=== PATIENT | female | born 1940 | race Caucasian/White ===

== ENCOUNTER 2019-12-26 05:45 | Day surgery (SDC) | payer OTHER ==
[~2019-12-26 05:45] MED LIST: ATORVAST PO; FOLBIC RF TABL1 EACH; SIMVASTATIN10 MG; [UNRECOGNIZED DRUG - OTHER] PO
[2019-12-26] MEDS ORDERED: ULTRACET PO (09:18)
[2019-12-26] MEDS ORDERED: RECTICARE30 GM TOP (09:19)
== END 2019-12-26 14:15 | disposition home or self-care (01) ==
LOC: CIR.AMB 05:45
PROVIDERS: ATTEND Surgery
DX: D12.9 Benign neoplasm of anus and anal canal (principal); Z20.828 Contact with and (suspected) exposure to other viral communicable diseases

== ENCOUNTER 2020-05-28 05:30 | Day surgery (SDC) | payer OTHER ==
[~2020-05-28 05:30] MED LIST changes: +CENTRUM ADULTS1 EACH PO; +RECTICARE30 GM TOP; +ULTRACET PO; +VITAMIN D3 PO
== END 2020-05-28 15:20 | disposition home or self-care (01) ==
LOC: CIR.AMB 05:30
PROVIDERS: ATTEND Obstetrics & Gynecology Gynecologic Oncology
DX: C51.8 Malignant neoplasm of overlapping sites of vulva (principal); Z20.822 Contact with and (suspected) exposure to COVID-19

== ENCOUNTER 2021-05-27 05:40 | Day surgery (SDC) | payer OTHER ==
[~2021-05-27 05:40] MED LIST changes: +ACID REDUCER20 M1 PO; +ALENDRONATE PO; -ATORVAST PO; +ATORVASTATIN PO; -[UNRECOGNIZED DRUG - OTHER] PO
== END 2021-05-27 16:55 | disposition home or self-care (01) ==
LOC: CIR.AMB 05:40
PROVIDERS: ATTEND Obstetrics & Gynecology Gynecologic Oncology
DX: C51.9 Malignant neoplasm of vulva, unspecified (principal); Z20.822 Contact with and (suspected) exposure to COVID-19